=== PATIENT | female | born 1990 | race Caucasian/White ===

== ENCOUNTER 2017-03-22 16:39 | Emergency (ER) | payer BC ==
[~2017-03-22] VITALS: Ht 162.6 cm; Wt 80.0 kg
[~2017-03-22 16:39] MED LIST: CYCL-36 PO; NAPR500 PO; muscle relaxer PO
[2017-03-22 16:46] VITALS: BP 133/97; PULSE 74; RESP 18; TEMP 98.6; O2SAT 98
[2017-03-22 20:50] VITALS: BP 142/89; PULSE 86; RESP 16; O2SAT 97
--- NOTE | 2017-03-22 21:16 | PD ---
HPI . Suicidal ideation Chief Complaint: Psychiatric Symptoms Time Seen by Provider: 20:54 Travel History International Travel<30 days: No Contact w/Intl Traveler<30days: No Traveled to known affect area: No History of Present Illness HPI Patient presents with suicidal ideation since suffering a rate 2 days ago. She was transferred to us from an outside hospital. She has already been treated for possible STD or . The patient declines involvement of the police department. Patient has had a history of depression since she was in high school. She has a history of cutting has a history of a previous suicide attempt via overdose. Symptoms are acutely worse since the right 2 days ago. Symptoms have been getting progressively worse. Patient states that she would cut herself vertically the wrist and then lay in a bathtub. So, her symptoms are significant. Patient does consent to an evaluation by the [facility] nurse. [facility] Past Medical History Medical History: Denies Significant Hx Diminished Hearing: No Reproductive: Yes (IUD) Immunizations Current: Yes ?: Unknown : 1 Para: 1 Past Surgical History Surgical History: No Previous Surgery Oral Surgery: Yes (WISDOM TEETH) Social History Alcohol Use: Yes (OCCASIONALLY) Tobacco Use: Yes (1/2 PACK A DAY ) Substance Use: No Allergies-Medications (Allergen,Severity, Reaction): Coded Allergies: No Known Allergies (Unverified , 01/29/16) Reported Meds & Prescriptions Reported Meds & Active Scripts Active Reported [muscle relaxer] 1 Tab PO DAILY Review of Systems Except as stated in HPI: all other systems reviewed are Neg Genitourinary: Positive: Pelvic Pain Psychiatric: Positive: Depression, Suicidal Ideations, Mood Disorder Physical Exam Narrative GENERAL: Awake and alert and in no acute distress. She is eating a sandwich. SKIN: Warm and dry. Superficial abrasions on the right wrist. HEAD: Atraumatic. Normocephalic. EYES: Pupils equal and round. Extraocular movements are intact. NECK: Trachea midline. Neck is supple. CARDIOVASCULAR: Regular rate and rhythm. RESPIRATORY: No accessory muscle use. MUSCULOSKELETAL: No obvious deformities. No edema. NEUROLOGICAL: Awake and alert. No obvious cranial nerve deficits. Motor grossly within normal limits. Normal speech. PSYCHIATRIC: She appears to have an appropriate mood and affect. Suicidal ideation reported. Data Data Last Documented VS Vital Signs Date Time Temp Pulse Resp B/P Pulse Ox O2 Delivery O2 Flow Rate FiO2 03/22/17 20:50 86 16 142/89 97 Room Air 03/22/17 16:46 98.6 Orders Complete Blood Count With Diff (03/22/17 20:37) Comprehensive Metabolic Panel (03/22/17 20:37) Urinalysis - C+S If Indicated (03/22/17 20:37) Ed Urine Pregnancytest Poc (03/22/17 20:37) Psych Screen (03/22/17 20:37) Drug Screen, Random Urine (03/22/17 20:37) Alcohol (Ethanol) (03/22/17 20:37) MDM Medical Decision Making Medical Screen Exam Complete: Yes Emergency Medical Condition: Yes Differential Diagnosis Differential diagnosis includes but is not limited to depression with suicidal gesture, suicide attempt, suicidal ideation, attention seeking behavior. Narrative Course Patient presents complaining of suicidal ideation since a rate of days ago. She has already been medically cleared at outside hospital. She has already been evaluated by the [facility] nurse. This patient is clear for psychiatric evaluation. Diagnosis Primary Impression: Suicidal ideation Condition: Stable Diana Ramirez MD March 22, 2017 21:16
[2017-03-23 07:53] VITALS: BP 117/59; PULSE 78; RESP 17; O2SAT 96
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
== END 2017-03-23 11:52 | disposition home or self-care (01) ==
LOC: NEDAMB 16:39 → NEPD 03-23 11:52
DX: F43.10 Post-traumatic stress disorder, unspecified (principal); F17.210 Nicotine dependence, cigarettes, uncomplicated; T76.21XA Adult sexual abuse, suspected, initial encounter
CPT/HCPCS: 99285